=== PATIENT | male | born 1945 | race Caucasian/White ===

== ENCOUNTER 2023-02-06 13:46 | Inpatient (IN) | payer OTHER ==
[~2023-02-06] VITALS: Ht 182.9 cm; Wt 73.0 kg
[2023-02-06] MEDS ORDERED: POLY17PO4 PO (14:27)
[2023-02-06] MEDS ORDERED: CEFT2VIA64 IV (14:27)
[2023-02-06] MEDS ORDERED: GABA-532 PO (14:27)
[2023-02-06] MEDS ORDERED: PANT40TA2 PO (14:27)
[2023-02-06] MEDS ORDERED: BISA10SU11 RC (14:27)
[2023-02-06] MEDS ORDERED: NA P133E RC (14:27)
[2023-02-06] MEDS ORDERED: WARF-58 PO (14:27)
[2023-02-06] MEDS ORDERED: SENN-261 PO (14:27)
[2023-02-06] MEDS ORDERED: BUDE0.5A4 INH (14:27)
[2023-02-06] MEDS ORDERED: DOCU-141 PO (14:27)
[2023-02-06] MEDS ORDERED: FERR325T23 PO (14:27)
[2023-02-06] MEDS ORDERED: ISOS10TA2 PO (14:27)
[2023-02-06] MEDS ORDERED: RIFA300C4 PO (14:27)
[2023-02-06] MEDS ORDERED: CARV3.122 PO (14:27)
[2023-02-06] MEDS ORDERED: CARB1TAB21 PO (14:27)
[2023-02-06] MEDS ORDERED: ACET-2605 PO (14:27)
[2023-02-06] MEDS ORDERED: AMIO200T5 PO (14:27)
[2023-02-06] MEDS ORDERED: AMPI2VIA14 IV (14:27)
[2023-02-06] MEDS ORDERED: BUME1TAB8 PO (14:27)
[2023-02-06] MEDS ORDERED: MAGN400O6 PO (14:27)
[2023-02-06] MEDS ORDERED: ACET-868 PO (14:27)
[2023-02-06] MEDS ORDERED: HEPA50007 SQ (14:27)
[2023-02-06] MEDS ORDERED: LACT10SO3 PO (14:27)
[2023-02-06] MEDS ORDERED: IPRA3AMP23 IH (14:27)
[2023-02-06] MEDS ORDERED: TRAM50TA2 PO ×2 (14:27)
[2023-02-06] MEDS ORDERED: FOLI0.8T2 PO (14:27)
--- NOTE | 2023-02-06 14:40 | NUR ---
PT PUT ON BED ON HIS SIDE, CC ABDOMINAL PAIN FEW HOURS PTC. KNOWN DIALYSIS PT 3XWEEKLY, LAST KNOWN DIALYSIS WAS TUESDAY.. AFTE EATING LUNCH PT SATRTED TO HAVE ADBDOMINAL PAIN 05/26. NON RADIATING WITH VOMOITINGM NO NAUSEA, YELLOWISH IN COLOR. PUT ON MONITOR AND PULSE . HAS BEDSORE WELL DRESSED FOR A YEAR NOW AND CLAIMS IT IS HEALING WELL.NURSING CARE PROVIDED. MEDICAL SALES AT BEDSIDE. MADE AWARE.
--- NOTE | 2023-02-06 14:43 | NUR ---
DIALYSIS STENT LOCATED SUBCLAVIAN RT, AND HAS A PICK LINE LT AC. PATIENT NOT IN DISTRESS
[2023-02-06] MEDS ORDERED: ONDANSETRON HCL/PF - ER 4 MG/2 ML VIAL IV ONE (15:30)
[2023-02-06] MEDS ORDERED: TRAMADOL HCL 50 MG TABLET PO ONE (15:30)
[2023-02-06] MEDS ORDERED: ONDANSETRON HCL/PF 4 MG/2 ML VIAL ONE (15:33)
[2023-02-06] MEDS ORDERED: TRAMADOL HCL 50 MG TABLET ONE (15:34)
[2023-02-06 15:39] LABS: EOSINOPHILS % (AUTO) 0.8 % (0.0-6.0); HEMATOCRIT 40 % (39-51); HEMOGLOBIN 12.3 g/dL (13.5-17.5); LYMPHOCYTES # (AUTO) 0.4 K/uL (0.8-4.8); LYMPHOCYTES % (AUTO) 9.5 % (20.0-44.0); MEAN CORPUSCULAR HGB CONC 31 g/dl (31.0-36.0); MEAN CORPUSCULAR VOLUME 102 fL (80-96); MONOCYTES # (AUTO) 0.4 K/uL (0.1-1.30); MONOCYTES % (AUTO) 7.9 % (2.0-12.0); NEUTROPHILS # (AUTO) 3.8 K/uL (1.8-8.9); NEUTROPHILS % (AUTO) 80.8 % (43.0-81.0); PLATELET COUNT (AUTO) 162 K/uL (150-450); RED BLOOD CELL COUNT(AUTO) 3.93 MIL/uL (4.5-6.0); WHITE BLOOD COUNT (AUTO) 4.7 K/uL (4.3-11.0)
[2023-02-06 16:28] LABS: ALANINE AMINOTRANSFERASE 8 U/L (12-78); ALBUMIN 2.7 g/dL (3.4-5.0); ALKALINE PHOSPHATASE 86 U/L (46-116); ASPARTATE AMINOTRANSFERASE 18 U/L (15-37); BILIRUBIN,DIRECT 0.4 mg/dL (0.0-0.2); BILIRUBIN,TOTAL 0.7 mg/dL (0.2-1.0); CALCIUM, SERUM 9.9 mg/dL (8.5-10.1); CARBON DIOXIDE 23 mmol/L (21-32); CHLORIDE 99 mmol/L (98-107); CREATININE 5.2 mg/dL (0.6-1.3); GLUCOSE 114 mg/dL (74-106); POTASSIUM 5.1 mmol/L (3.5-5.1); SODIUM SERUM 138 mmol/L (136-145); TOTAL PROTEIN, SERUM 6.5 g/dL (6.4-8.2); UREA NITROGEN, BLOOD 50 mg/dL (7-18)
--- NOTE | 2023-02-06 16:42 | NUR ---
MOVE SHEET SUBMITTED.
[2023-02-06] MEDS ORDERED: ASPIRIN 325 MG TABLET PO ONE (17:30)
--- NOTE | 2023-02-06 17:57 | NUR ---
DR COOK PAGED, TALKING TO DR PAYNE.
--- NOTE | 2023-02-06 18:06 | NUR ---
ADMISSIONS INFORMED PT HAS NOT RECEIVED AUTH FROM INSURANCE YET.
--- NOTE | 2023-02-06 18:57 | NUR ---
COVID SWAB DONE SENT TO LAB
--- NOTE | 2023-02-06 20:06 | NUR ---
REPORT GIVEN TO ANSELMO DONATO RN BED 209 FOR CONTINUATION OF CARE
--- NOTE | 2023-02-06 20:09 | NUR ---
CRITICAL RESULT FOR TROP 127
--- NOTE | 2023-02-06 20:19 | NUR ---
EDECHO DONE WITH EF OF 20-25
[2023-02-06] MEDS ORDERED: Medication Not On Formulary EA (Ceftriaxone Sodium (Ceftriaxone) 2 GM) IV SCH (20:30)
[2023-02-06] MEDS ORDERED: Medication Not On Formulary EA (Ipratropium/Albuterol Sulfate (Duoneb 2.5-0.5 Mg/3 Ml So IH PRN (20:30)
[2023-02-06 21:00] VITALS: BP 112/62
[2023-02-06] MEDS ORDERED: HEPARIN SODIUM, PORCINE 5000 UNITS/1 ML VIAL SQ SCH (21:00)
[2023-02-06] MEDS ORDERED: BISACODYL SUPP (10 MG) 10 MG/SUPP.RECT SUPP.RECT RC ONE (21:00)
[2023-02-06] MEDS ORDERED: AMPICILLIN SODIUM 2 GM VIAL IV SCH (21:00)
[2023-02-06] MEDS ORDERED: ONDANSETRON HCL/PF 4 MG/2 ML VIAL IV PRN (21:00)
[2023-02-06] MEDS ORDERED: HYDROMORPHONE MDV 0.5 MG in IV D5W 50 ML IV PRN (21:00)
--- NOTE | 2023-02-06 21:15 | NUR ---
RN NOTE SEEN AND EXAMINED BY DR. COOK. PATIENT IS FOR MANUAL DISIMPACTION UNDER SEDATION. CONSENT SECURED FOR THE PROCEDURE. PATIENT SIGNED THE CONSENT FOR THE PROCEDURE AND ANESTHESIA.
[2023-02-06] MEDS ORDERED: ALBUTEROL FS 2.5 MG/0.5 ML VIAL.NEB NEB PRN (21:30)
[2023-02-06] MEDS ORDERED: IPRATROPIUM NEB FS 0.5 MG/2.5 ML AMPUL.NEB IH PRN (21:30)
--- NOTE | 2023-02-06 21:30 | NUR ---
HIGHWAY MAINTENANCE WORKEROIL RIG ROUGHNECK NOTE ADMITTED THIS PATIENT FROM ER VIA [facility] @ 2029. PATIENT IS AWAKE, ALERT AND ORIENTED X 3. ON O2 INHALATION @ 3 LPM VIA NASAL CANNULA. ON EXTERNAL CARDIAC MONITORING WHICH READS SINUS TACHYCARDIA HR-103 BPM. INITIAL VS TAKEN FOLLOWS: T 98.2, TN 98, RR 20, 02 SAT 94%, BP 112/62. BREATHING EQUAL AND UNLABORED. BODY AND SKIN ASSESSMENT DONE. PICTURES TAKEN AND PLACED TO CHART. WITH LEFT UPPER ARM PICC LINE; INTACT, PATENT AND SALINE LOCKED. WITH RIGHT UPPER CHEST WALL HD CATH. DRESSING C/D/I. ABLE TO MAKE NEEDS KNOWN. ORIENTED TO STAFF, ROOM AND UNIT. SAFETY MEASURES IMPLEMENTED: CALL LIGHT AND TABLE WITHIN REACH, SIDE RAILS UP X 3, BED IN LOWEST LOCKED POSITION. WILL CONTINUE TO MONITOR PATIENT ACCORDINGLY.
[2023-02-06] MEDS ORDERED: ANESTHESIA TRAY IN PYXIS 1 EA TRAY MC ONE (21:34)
[2023-02-06] MEDS ORDERED: MIDAZOLAM HCL 2 MG/2ML VIAL ONE (21:35)
[2023-02-06] MEDS ORDERED: FENTANYL PF 100MCG/2ML AMPUL ONE (21:35)
--- NOTE | 2023-02-06 21:45 | NUR ---
RN NOTE HEPARIN 1 ML HELD ORDERED FOR POSSIBLE SURGERY.
--- NOTE | 2023-02-06 21:50 | NUR ---
RN NOTE PATIENT PICKED UP BY OR NURSES.
[2023-02-06] MEDS ORDERED: LIDOCAINE 2% JEL 5 ML TUBE ONE (21:54)
[2023-02-06 21:58] LABS: BAND % (MANUAL) 8 % (0.0-5.0); LYMPHOCYTES % (MANUAL) 10 % (16-48); MONOCYTES % (MANUAL) 4 % (0-11.0); MYELOCYTES % 1 % (0-0); NEUTROPHILS % (MANUAL) 77 (42-76)
--- NOTE | 2023-02-06 23:25 | NUR ---
RN NOTE PATIENT CAME BACK FROM ER. PATIENT IS AWAKE, ALERT AND ORIENTED X 3. STILL ON 3 LPM VIA NASAL CANNULA. VS FOLLOWS: T 98.4, OR 104, RR 20, O2 SAT 95%. WITH POST OP ORDER FROM DR COOK; WILL CARRY OUT.
[2023-02-06] MEDS: IV D5/ 0.9% NACL 1,000 ML IV PRN (23:52)
[2023-02-07] VITALS: BP 111/73
[2023-02-07] MEDS ORDERED: CEFTRIAXONE 1 G VIAL ONE ×2 (00:35→00:37)
[2023-02-07] MEDS: CEFTRIAXONE 2 G in IV NS 0.9% 100 ML IV SCH ×2 (00:41→22:47)
[2023-02-07] MEDS ORDERED: AMPICILLIN 1 GM VIAL ONE (00:54)
[2023-02-07] MEDS: AMPICILLIN SODIUM 2 GM in IV NS 0.9% 100 ML IV SCH ×3 (01:58→21:19)
[2023-02-07 04:00] VITALS: BP 116/67
--- NOTE | 2023-02-07 07:00 | NUR ---
SUMMER NANNY CLOSING NOTE PATIENT IN BED; AWAKE, A/O X 3. STILL ON O2 INHALATION @ 3 LPM VIA NASAL CANNULA. ON EXTERNAL CARDIAC MONITORING WHICH READS SINUS RHYTHM HR-91 BPM. NO S/S OF PAIN OR DISCOMFORT NOTED AT THIS TIME. WITH LEFT UPPER ARM PICC LINE; INTACT AND PATENT RUNNING WITH D5NS 1L REGULATED @ 50 ML/HR; FLUSHES WELL. WITH RIGHT UPPER CHEST WALL HD CATH. DRESSING C/D/I. SAFETY MEASURES MAINTAINED: CALL LIGHT AND TABLE WITHIN REACH, SIDE RAILS UP X 3, BED IN LOWEST LOCKED POSITION. ENDORSED TO MORNING SHIFT FOR CONTINUITY OF CARE.
--- NOTE | 2023-02-07 07:35 | NUR ---
DISPUTE RESOLUTION SPECIALIST OPENING NOTES RECEIVED PATIENT IN BED; AWAKE, A/O X 3, ABLE TO MAKE NEEDS KNOWN. ON O2 INHALATION AT 2L VIA NC, TOLERATING WELL AND SATURATING AT 98%. NO SOB NOTED, BREATHING EVEN AND UNLABORED. NO SIGNS OF ACUTE DISTRESS NOTED. DENIES ANY PAIN AT THIS TIME. ON TELE MONITORING READING SR, HR:90. NOTED WITH IV ACCESS AT LEFT UPPER ARM PICC LINE-RUNNING WITH D5NS 1L REGULATED @ 50ML/HR; WITH RIGHT UPPER CHEST WALL HD CATHETER, DRESSING CLEAN, DRY AND INTACT. SAFETY MEASURES IN PLACE: BED IN LOW AND LOCKED POSITION; SIDE RAILS UP X2; CALL LIGHT WITHIN EASY REACH; WILL CONTINUE TO MONITOR THE PATIENT.
[2023-02-07 08:00] VITALS: BP 109/74
--- NOTE | 2023-02-07 08:00 | NUR ---
SPECIAL NEEDS LIBRARIAN SEEN BY DR DASHA RAMOS.
[2023-02-07] MEDS ORDERED: BUDESONIDE RESPULE INH 0.5 MG/2 ML AMPUL.NEB IH SCH (09:00)
[2023-02-07] MEDS: ENSURE CLEAR 237 ML LIQUID (MIX BERRY) PO SCH ×3 (09:00→17:14)
[2023-02-07] MEDS ORDERED: LINACLOTIDE PO SCH (09:00)
[2023-02-07 09:26] LABS: ALANINE AMINOTRANSFERASE < 6 U/L (12-78); ALBUMIN 2.4 g/dL (3.4-5.0); ALKALINE PHOSPHATASE 77 U/L (46-116); ASPARTATE AMINOTRANSFERASE 14 U/L (15-37); BILIRUBIN,TOTAL 0.6 mg/dL (0.2-1.0); CARBON DIOXIDE 24 mmol/L (21-32); CHLORIDE 99 mmol/L (98-107); CREATININE 5.6 mg/dL (0.6-1.3); GLUCOSE 135 mg/dL (74-106); MAGNESIUM 3.1 mg/dL (1.8-2.4); PHOSPHORUS 6.7 mg/dL (2.5-4.9); POTASSIUM 5.8 mmol/L (3.5-5.1); SODIUM SERUM 138 mmol/L (136-145); TOTAL PROTEIN, SERUM 6.3 g/dL (6.4-8.2); UREA NITROGEN, BLOOD 61 mg/dL (7-18)
--- NOTE | 2023-02-07 09:26 | NUR ---
WOUND CARE CONSULT: PT PRESENTS WITH DUSKY COLOR TO FEET AND TOES, SACRAL STAGE 3 PRESSURE ULCER, DRY SKIN TO ARMS WITH SKIN TEARS AND AREAS OF DISCOLORATION AND SCAR TO BACK, ALL PRESENT ON ADMISSION. DR STODDARD CALLED FOR SURGICAL CONSULT. DISCUSSED SKIN PROTECTION WITH NURSING STAFF. MD IN AGREEMENT WITH PLAN OF CARE.
[2023-02-07] MEDS ORDERED: Z GUARD REMEDY 4 OZ OINT TP PRN (09:30)
--- NOTE | 2023-02-07 09:56 | NUR ---
PERSONAL ATTENDANT NOTE RECIEVED A CALL FROM [employer], PROVIDER FOR PACEMAKER/ICD. SHE APPARENTLY GOT A PAGE, I TOLD HER THAT MD WANTED TO HAVE PATIENT'S ICD CHECKED. SHE JUST ASKED FOR THE PATIENT'S DATE OF AND SAID SHE WILL SEND SOMEBODY IF THEY ARE THE PROVIDER FOR THE PATIENT.
--- NOTE | 2023-02-07 10:01 | NUR ---
GERONTOLOGY AIDE NOTE ANTICIPATING PATIENT POSSIBLY GOING ON HD PATIENT IS A REGULAR HD PATIENT. SECURED CONSENT FOR POSSIBLE HD, PATIENT UNABLE TO SIGN FOR HIMSELF BECAUSE OF HAND TREMORS BUT GAVE VERBAL CONSENT. WITNESSED BY ANOTHER NURSE. CONSENT ATTACHED TO CHART.
[2023-02-07] MEDS: AMIODARONE HCL 200 MG TABLET PO SCH ×2 (10:14→16:57)
[2023-02-07] MEDS: CARBIDOPA/LEVODOPA 25/100 MG 1 UDTAB PO SCH ×3 (10:14→16:46)
[2023-02-07] MEDS: LACTULOSE 10 G/15 ML UDC (PYXIS) PO SCH ×2 (10:14→16:44)
[2023-02-07] MEDS: CARVEDILOL 3.125 MG TABLET PO SCH ×2 (10:15→16:58)
[2023-02-07] MEDS ORDERED: HYDROMORPHONE 1 MG/1 ML DISP.SYRIN IV PRN (11:00)
[2023-02-07 12:00] VITALS: BP 118/71
--- NOTE | 2023-02-07 12:45 | NUR ---
INSTRUMENT TESTER NOTE PATIENT LATEST BS 55 MG/DL, NO SIGNS AND SYMPTOMS OF HYPOGLYCEMIA. PATIENT IS CURRENTLY EATING AND REFUSED TO BE GIVEN D50 AT THIS TIME. HE SAID TO JUST RECHECK IT LATER. IN STABLE CONDITION.
[2023-02-07] MEDS: THERAHONEY GEL 1.5 OZ TUBE TP SCH ×2 (13:01→13:09)
[2023-02-07] MEDS: Z GUARD REMEDY 4 OZ OINT TP SCH (13:02)
[2023-02-07] MEDS: MINERAL OIL/PETROLATUM,WHITE 120 GM JAR TP SCH ×2 (13:07→13:29)
[2023-02-07] MEDS: ISOSORBIDE DINITRATE (20MG) 20 MG TABLET PO SCH ×2 (13:16→16:45)
[2023-02-07] MEDS: POLYETHYLENE GLYCOL 3350 17 GM POWD.PACK PO SCH (15:08)
[2023-02-07 16:00] VITALS: BP 108/60
--- NOTE | 2023-02-07 17:00 | NUR ---
POULTRY PINNER PATIENT STARTED HEMODIALYSIS.
[2023-02-07] MEDS ORDERED: ALBUMIN 25% 25 GM in PREMIX 1 EA IV PRN (17:30)
[2023-02-07] MEDS: PROSOURCE / PROSTAT (PYXIS) 30 ML UDC GT SCH (17:35)
[2023-02-07] MEDS ORDERED: WARFARIN SODIUM 5 MG TABLET PO SCH (18:00)
--- NOTE | 2023-02-07 19:00 | NUR ---
CARDIAC EXERCISE PHYSIOLOGIST PATIENT'S HEMODIALYSIS ENDED AT 1900H WITH OUTPUT OF 1 LITER. PATIENT TOLERATED WELL.
--- NOTE | 2023-02-07 19:21 | NUR ---
MANAGER APPLICATION CLOSING NOTES PATIENT IN BED; AWAKE, A/O X 3, ABLE TO MAKE NEEDS KNOWN. ON O2 INHALATION AT 2L VIA NC, TOLERATING WELL AND SATURATING AT 98%. NO SOB NOTED, BREATHING EVEN AND UNLABORED. NO SIGNS OF ACUTE DISTRESS NOTED. DENIES ANY PAIN AT THIS TIME. ON TELE MONITORING READING MANAGER EXCHANGE, HR:87. NOTED WITH IV ACCESS AT LEFT UPPER ARM PICC LINE-RUNNING WITH D5NS 1L REGULATED @ 50ML/HR; WITH RIGHT UPPER CHEST WALL HD CATHETER, DRESSING CLEAN, DRY AND INTACT. ALL DUE MEDS GIVEN. ALL NEEDS ATTENDED. SAFETY MEASURES MAINTAINED; BED IN LOW AND LOCKED POSITION; SIDE RAILS UP X2; CALL LIGHT WITHIN EASY REACH; WILL ENDORSE TO VALIDATION LEADER NURSE FOR CONTINUITY OF CARE.
[2023-02-07] MEDS: BUDESONIDE RESPULE INH 0.5 MG/2 ML AMPUL.NEB IH SCH (19:51)
--- NOTE | 2023-02-07 20:01 | NUR ---
RN Opening Notes Received pt in bed, awake. AOx4. On NC 3LPM and tolerating well. No SOB noted. No s/sx of respiratory distress noted. Tele monitor detects V-pacing with rate of 89. IV access in SEBAS PICC line running D51/2NS @ 50 mL/hr. Safety precautions in place: bed in lowest, locked position, siderails upX2, and brakes on. Table and call light within reach. All needs met at this time.
[2023-02-07] MEDS ORDERED: NA PHOS,M-B/NA PHOS,DI-BA 1 EA ENEMA RC PRN (20:30)
--- NOTE | 2023-02-07 20:37 | NUR ---
RN Notes Administered dilaudid for pain per MD order. VS WNL.
[2023-02-07 21:29] VITALS: BP 111/50
[2023-02-08] VITALS (27 sets, daily range): BP systolic 78–161; BP diastolic 45–110
[2023-02-08] MEDS: IV D5/ 0.9% NACL 1,000 ML IV PRN (01:10)
[2023-02-08 06:31] LABS: BASOPHILS % (AUTO) 0.1 % (0.0-2.0); HEMATOCRIT 37 % (39-51); HEMOGLOBIN 11.4 g/dL (13.5-17.5); LYMPHOCYTES # (AUTO) 0.2 K/uL (0.8-4.8); LYMPHOCYTES % (AUTO) 2.7 % (20.0-44.0); MEAN CORPUSCULAR HGB CONC 31 g/dl (31.0-36.0); MEAN CORPUSCULAR VOLUME 101 fL (80-96); MONOCYTES # (AUTO) 0.2 K/uL (0.1-1.30); MONOCYTES % (AUTO) 2.9 % (2.0-12.0); NEUTROPHILS # (AUTO) 7.8 K/uL (1.8-8.9); NEUTROPHILS % (AUTO) 94.3 % (43.0-81.0); PLATELET COUNT (AUTO) 134 K/uL (150-450); WHITE BLOOD COUNT (AUTO) 8.3 K/uL (4.3-11.0)
--- NOTE | 2023-02-08 06:38 | NUR ---
RN Closing Notes Pt in bed, asleep, awakens to verbal stimuli. AOx4. On NC 3LPM and tolerating well. No SOB noted. No s/sx of respiratory distress noted. Tele monitor detects V-pacing with rate of 89. IV access in SEBAS PICC line running D5NS @ 50 mL/hr. All orders carried out. All needs met. Pt kept clean and dry. Safety precautions in place: bed in lowest, locked position, siderails upX2, and brakes on. Table and call light within reach. Will endorse to oncoming shift for AMRITA.
--- NOTE | 2023-02-08 07:20 | NUR ---
PERSONAL CARE WORKER OPENING NOTES RECEIVED PATIENT IN BED; ASLEEP BUT EASY TO AROUSE, A/O X 4, ABLE TO MAKE NEEDS KNOWN. ON O2 INHALATION AT 3L VIA NC, TOLERATING WELL AND SATURATING AT 99%. NO SOB NOTED, BREATHING EVEN AND UNLABORED. NO SIGNS OF ACUTE DISTRESS NOTED. ON TELE MONITORING READING SR, HR:97. NOTED WITH IV ACCESS AT LEFT UPPER ARM PICC LINE-RUNNING WITH D5NS 1L REGULATED @ 50ML/HR; WITH RIGHT UPPER CHEST WALL HD CATHETER, DRESSING CLEAN, DRY AND INTACT. SAFETY MEASURES IN PLACE: BED IN LOW AND LOCKED POSITION; SIDE RAILS UP X2; CALL LIGHT WITHIN EASY REACH; WILL CONTINUE TO MONITOR THE PATIENT.
[2023-02-08 07:31] LABS: CALCIUM, SERUM 9.4 mg/dL (8.5-10.1); CARBON DIOXIDE 25 mmol/L (21-32); CHLORIDE 103 mmol/L (98-107); CREATININE 4.1 mg/dL (0.6-1.3); GLUCOSE 117 mg/dL (74-106); MAGNESIUM 2.6 mg/dL (1.8-2.4); POTASSIUM 4.4 mmol/L (3.5-5.1); SODIUM SERUM 140 mmol/L (136-145); UREA NITROGEN, BLOOD 42 mg/dL (7-18)
[2023-02-08] MEDS: BUDESONIDE RESPULE INH 0.5 MG/2 ML AMPUL.NEB IH SCH ×2 (08:11→20:11)
[2023-02-08] MEDS: CARVEDILOL 3.125 MG TABLET PO SCH ×3 (09:00→17:00)
[2023-02-08] MEDS: ISOSORBIDE DINITRATE (20MG) 20 MG TABLET PO SCH ×3 (09:00→17:00)
--- NOTE | 2023-02-08 09:15 | NUR ---
GREENS PLANTER NOTE PATIENT STARTED ON HD AROUND 0900H SOON THE HD STARTED, PATIENT SHOWED VTACH WITH PREMATURE COMPLEX. PATIENT DOES NOT SHOW ANY SIGNS OF DISTRESS AND ALSO HAVE AN ICD. ORDERED STAT EKG AND NOTIFIED RT. WHEN ASKED, PATIENT STATED ' I AM JUST FINE'. WHEN ASKED IF HE IS FEELING ANYTHING DIFFERENT, HE SAID 'NO'. COMFORT MEASURES PROVIDED.
--- NOTE | 2023-02-08 09:50 | NUR ---
ACETALDEHYDE CONVERTER OPERATOR NOTE PATIENT EKG SENT TO DR. LYLES. PATIENT SEEN BY DR. RAMOS. HD DISCONTINUED. NO SIGNS OF DISTRESS. WITH ORDER TO GIVE 500ML NS BOLUS. STARTED INFUSION. WILL CONTINUE WITH PLAN OF CARE. IN STABLE CONDITION. WILL CONTINUE WITH PLAN OF CARE.
--- NOTE | 2023-02-08 10:13 | NUR ---
TITLE CLOSER NOTE UPDATED MD OF LATEST INR 2.68, WITH ORDER TO STILL HOLD COUMADIN.
[2023-02-08] MEDS: LACTULOSE 10 G/15 ML UDC (PYXIS) PO SCH ×2 (10:14→17:07)
[2023-02-08] MEDS: PROSOURCE / PROSTAT (PYXIS) 30 ML UDC GT SCH ×2 (10:14→17:07)
[2023-02-08] MEDS: POLYETHYLENE GLYCOL 3350 17 GM POWD.PACK PO SCH (10:14)
[2023-02-08] MEDS: CARBIDOPA/LEVODOPA 25/100 MG 1 UDTAB PO SCH ×3 (10:16→17:07)
[2023-02-08] MEDS: AMIODARONE HCL 200 MG TABLET PO SCH ×3 (10:16→17:00)
[2023-02-08] MEDS: AMPICILLIN SODIUM 2 GM in IV NS 0.9% 100 ML IV SCH ×2 (10:20→20:28)
[2023-02-08] MEDS: ENSURE CLEAR 237 ML LIQUID (MIX BERRY) PO SCH ×3 (10:21→17:32)
[2023-02-08] MEDS: MINERAL OIL/PETROLATUM,WHITE 120 GM JAR TP SCH (10:37)
[2023-02-08] MEDS: THERAHONEY GEL 1.5 OZ TUBE TP SCH ×2 (10:37→10:38)
[2023-02-08] MEDS: Z GUARD REMEDY 4 OZ OINT TP SCH (10:38)
--- NOTE | 2023-02-08 14:20 | NUR ---
WASTE RECYCLER NOTE RECHECKED PATIENT, INFUSING BOLUS NOW AT 350ML, NOTED SOME COUGHING. PATIENT COMPLAINED OF SOME SHORTNESS OF BREATH. ON O2 AT 2LPM SATURATING AT 97%. WHILE AT BEDSIDE PATIENT GOT SHOCKED WITH ICD AROUND 1358, THEN AFTER A FEW MINUTES, HE SAID HE IS BETTER BUT FEELS TIRED. DR. LYLES AND DR. RAMOS NOTIFIED. WITH ORDERS RECEIVED FROM DR. LYLES FOR STAT LABS AND LIDOCAINE DRIP AND TRANSFER PATIENT TO ICU. COMFORT MEASURES PROVIDED. CHARGE NURSE NOTIFIED. DR. RAMOS NOTIFIED. AWAITING AVAILABLE ROOM. Addendum: 02/08/23 at 1559 by ALEXEI SMITH RN PATIENT STARTED WITH VTACH WITH COMPLEX AT 140'S THEN GOT SHOCKED AND CONVERTED TO AFIB 80-90'S THEN BACK TO VTACH AT 140'S
--- NOTE | 2023-02-08 14:50 | NUR ---
GLOVE PARTS CUTTER NOTE WITH AVAILABLE BED ON ICU 252. PATIENT TRANSFERRED AND TRANSPORTED VIA BED ACCOMPANIED BY 2 NURSES. PATIENT ENDORSED TO ICU NURSES, COMFORT MEASURES PROVIDED. PATIENT STILL TO START ON LIDOCAINE DRIP AND BLOOD DRAW. NOTIFIED LAB REGARDING TRANSFER. ENDORSED PATIENT ACCORDINGLY.
[2023-02-08] MEDS ORDERED: IV LIDOCAINE HCL/D5W/PF/500ML 2,000 MG in PREMIX 1 EA IV PRN (15:00)
--- NOTE | 2023-02-08 15:00 | NUR ---
PACKAGING ENGINEER NOTE PATIENT TRANSFERRED FROM MED-SURG TO ICU MONITORING AT ROOM 252,ALERT ORIENTED X4 VERBALLY RESPONSIVE ON 2L OXYGEN VIA NASAL CANNULA,O2:94% HR 143 TACHYCARDIA,DASH CATH IN PLACE,URINE BLOODY,IV ACCESS ON LEFT UPPER ARM PICC LINE AND RIGHT CHEST WALL PERM-CATH FOR HD,SAFETY MEASURE IMPLEMENT BED IN LOW POSITON AND LOCKED,HEAD OF THE BED ELEVATED,CALL LIGHT WITHIN REACH CONTINUE TO MONITOR.
[2023-02-08 16:06] LABS: BAND % (MANUAL) 2 % (0.0-5.0); LYMPHOCYTES % (MANUAL) 2 % (16-48); NEUTROPHILS % (MANUAL) 96 (42-76)
--- NOTE | 2023-02-08 17:00 | NUR ---
RN NOTE HELD BP MEDS AT THIS TIME,DUE TO BP>100,CONTINUE TO MONITOR.
[2023-02-08] MEDS ORDERED: NOREPINEPHRINE 8 MG in IV NS 0.9% 242 ML IV PRN (18:00)
--- NOTE | 2023-02-08 18:58 | NUR ---
RN NOTE PATIENT REMAINS ALERT ORIENTED X4 VERBALLY RESPONSIVE ON 2L OXYGEN VIA NASAL CANNULA O2:97% ON LIDOCINE DRIP 1MG/15ML/HR,TACHYCARDIA HR 138,DASH CATH IN PLACE,KEPT HEAD OF THE BED ELEVATED,KEPT CLEAN AND DRY ALL THE TIME,ALL MEDS GIVEN EXCEPT BP MEDS,WILL ENDORSE NEXT COMING SHIFT FOR CONTINUATION OF CARE.
--- NOTE | 2023-02-08 19:46 | NUR ---
VIBRATOR EQUIPMENT TESTER OPENING NOTES: RECEIVED IN BED, AWAKE, ALERT/ ORIENTED X 3-4 AND VERBALLY RESPONSIVE. ON O2 AT 2L/MIN VIA NASAL CANNULA AND PT TOLERATED WELL. O2 SAT 96%. CARDIAC MONITORING SHOWS HR-139. IV ACCESS ON LEFT UPPER ARM PICC LINE. RUNNING LIDOCAINE DRIP 1MG/MIN. RIGHT CHEST WALL PERM-CATH FOR HD, COVERED WITH DRY DRESSING. DASH CATHETER IN PLACE. DRAINING SMAL AMOUNT OF URINE. ALL SAFETY MEASURE IN PLACE. BED IN LOWEST POSITON AND LOCKED,HEAD OF THE BED ELEVATED,SIDE RAILS UP X3, PLACE CALL LIGHT WITHIN REACH. WILL CONTINUE TO MONITOR.
[2023-02-08] MEDS: PHENYLEPHRINE 50 MG in IV NS 0.9% 245 ML IV PRN (21:33)
--- NOTE | 2023-02-08 21:38 | NUR ---
RN NOTES: PT'S BP DECREASING. BP- 86/60, PULSE- 139, RES-15. STARTED JULIA AT 0.5 MCG/KG/MIN. WILL CONTINUE TO MONITOR
[2023-02-08] MEDS: CEFTRIAXONE 2 G in IV NS 0.9% 100 ML IV SCH (22:09)
--- NOTE | 2023-02-08 23:54 | NUR ---
RN NOTES: PT'S BLOOD PRESSURE 84/74. PULSE 134. INCREASE JULIA TO 0.6 MCG/KG/MIN. WILL CONTINUE TO MONITOR
[2023-02-09] VITALS (89 sets, daily range): BP systolic 45–125; BP diastolic 13–87
--- NOTE | 2023-02-09 02:38 | NUR ---
RN NOTES: PT HAS EPISODE OF VOMITING. ZOFRAN GIVEN AND PT TOLERATED WELL. WILL CONTINUE TO MONITOR
[2023-02-09 03:59] LABS: BASOPHILS % (AUTO) 0.2 % (0.0-2.0); HEMATOCRIT 38 % (39-51); HEMOGLOBIN 11.6 g/dL (13.5-17.5); LYMPHOCYTES # (AUTO) 0.3 K/uL (0.8-4.8); LYMPHOCYTES % (AUTO) 2.9 % (20.0-44.0); MEAN CORPUSCULAR HGB CONC 31 g/dl (31.0-36.0); MEAN CORPUSCULAR VOLUME 102 fL (80-96); MONOCYTES # (AUTO) 0.5 K/uL (0.1-1.30); MONOCYTES % (AUTO) 4.9 % (2.0-12.0); NEUTROPHILS # (AUTO) 9.5 K/uL (1.8-8.9); PLATELET COUNT (AUTO) 155 K/uL (150-450); RED BLOOD CELL COUNT(AUTO) 3.72 MIL/uL (4.5-6.0); WHITE BLOOD COUNT (AUTO) 10.3 K/uL (4.3-11.0)
[2023-02-09 04:14] LABS: CALCIUM, SERUM 9.9 mg/dL (8.5-10.1); CARBON DIOXIDE 21 mmol/L (21-32); CHLORIDE 102 mmol/L (98-107); CREATININE 4.5 mg/dL (0.6-1.3); GLUCOSE 117 mg/dL (74-106); MAGNESIUM 2.8 mg/dL (1.8-2.4); SODIUM SERUM 138 mmol/L (136-145); UREA NITROGEN, BLOOD 45 mg/dL (7-18)
--- NOTE | 2023-02-09 06:32 | NUR ---
MONKEY BREEDER CLOSING NOTES: PT IN BED, SLEEPING BUT EASILY AROUSABLE, ALERT/ ORIENTED X 3-4 AND VERBALLY RESPONSIVE. ON O2 AT 2L/MIN VIA NASAL CANNULA AND PT TOLERATED WELL. O2 SAT 97%. IV ACCESS ON LEFT UPPER ARM PICC LINE AND LT FOOT#22G INTACT AND PATENT. NO S/S OF INFILTRATIONS. RUNNING LIDOCAINE DRIP 1MG/MIN AND JULIA AT 0.6 MCG/KG/MIN. RIGHT CHEST WALL PERM-CATH FOR HD, COVERED WITH DRY DRESSING. AV SHUNT ON RT FOREARM IN PLACE. NO C/O PAIN OR DOSCOMFORT. NO NAUSEA/VOMITING AT THIS MOMENT. DASH CATHETER IN PLACE. DRAINING DARK COLOR URINE. ALL DUE MEDS GIVEN ORDERED. Q 30 MINULES MANUAL BP CHECK DONE. ALL SAFETY MEASURE IN PLACE. BED IN LOWEST POSITON AND LOCKED,HEAD OF THE BED ELEVATED,SIDE RAILS UP X3, PLACE CALL LIGHT WITHIN REACH. WILL ENDORSE TO MORNING SHIFT NURSE.
--- NOTE | 2023-02-09 07:20 | NUR ---
PSYCHIATRIC TECHNICIAN ASSISTANT OPENING NOTE PT IN BED, SLEEPING BUT EASILY AROUSABLE, ALERT/ ORIENTED X 3-4 AND VERBALLY RESPONSIVE. ON O2 AT 2L/MIN VIA NASAL CANNULA AND PT TOLERATED WELL. O2 SAT 97%. IV ACCESS ON LEFT UPPER ARM PICC LINE AND LT FOOT#22G INTACT, PATENT AND FLUSHING WELL. . RUNNING LIDOCAINE DRIP 1MG/MIN AND JULIA AT 0.6 MCG/KG/MIN. RIGHT CHEST WALL PERM-CATH FOR HD, COVERED WITH CLEAN AND DRY DRESSING. AV SHUNT ON RT FOREARM IN PLACE. NO C/O PAIN OR DOSCOMFORT AT THIS TIME.DASH CATHETER IN PLACE. DRAINING DARK COLOR URINE. ALL SAFETY MEASURE IN PLACE. BED IN LOWEST POSITON AND LOCKED,HEAD OF THE BED ELEVATED AT ALL TIMES,SIDE RAILS UP X3, PLACE CALL LIGHT WITHIN REACH.
[2023-02-09] MEDS: BUDESONIDE RESPULE INH 0.5 MG/2 ML AMPUL.NEB IH SCH ×2 (07:24→19:37)
[2023-02-09] MEDS ORDERED: LACTULOSE 10 G/15 ML UDC (PYXIS) PO PRN (08:30)
[2023-02-09] MEDS ORDERED: ALBUMIN 25% 12.5 GM/50 ML BOTTLE IV ONE (08:30)
[2023-02-09] MEDS: POLYETHYLENE GLYCOL 3350 17 GM POWD.PACK PO SCH (08:36)
[2023-02-09] MEDS: THERAHONEY GEL 1.5 OZ TUBE TP SCH (08:39)
[2023-02-09] MEDS: Z GUARD REMEDY 4 OZ OINT TP SCH (08:39)
[2023-02-09] MEDS: AMIODARONE HCL 200 MG TABLET PO SCH ×3 (09:00→16:56)
[2023-02-09] MEDS: PROSOURCE / PROSTAT (PYXIS) 30 ML UDC GT SCH ×2 (09:00→16:37)
[2023-02-09] MEDS: CARBIDOPA/LEVODOPA 25/100 MG 1 UDTAB PO SCH ×3 (09:00→16:55)
--- NOTE | 2023-02-09 09:01 | NUR ---
RN NOTE PT CURRENTLY GETTING DIALYSIS AT THIS TIME
--- NOTE | 2023-02-09 09:45 | NUR ---
rn note during dialysis, pt went into vtach 135. dialysis stopped. dialysis nurses only removed 177ml
--- NOTE | 2023-02-09 10:03 | NUR ---
RN NOTE notified that pt went to [facility] during dialysis. sent results of ekg to . notified manual bp recheck 86/52, guillermo at 0.8
[2023-02-09] MEDS: MINERAL OIL/PETROLATUM,WHITE 120 GM JAR TP SCH (10:17)
[2023-02-09] MEDS: ENSURE CLEAR 237 ML LIQUID (MIX BERRY) PO SCH ×3 (10:19→16:58)
[2023-02-09] MEDS: AMPICILLIN SODIUM 2 GM in IV NS 0.9% 100 ML IV SCH ×2 (10:57→22:22)
--- NOTE | 2023-02-09 11:36 | NUR ---
rn note amidoraone po was held due to vtach epsiode, pt lethargic at this time and high risk for aspiration
--- NOTE | 2023-02-09 12:04 | NUR ---
pt. place into high flow nasal cannula due to 84% spo2 in non rebreather mask. charge nurse and rn aware Addendum: 02/09/23 at 1206 by PENNY SCHAEFER RT Amended: Links added.
[2023-02-09] MEDS: PHENYLEPHRINE 50 MG in IV NS 0.9% 245 ML IV PRN ×2 (12:40→23:36)
--- NOTE | 2023-02-09 13:25 | NUR ---
rn note pt placed on hi flow 40L, fio2 100% by respiratory therapist. dr. cintron aware
--- NOTE | 2023-02-09 13:30 | NUR ---
rn note notified if okay to give amidarone with a bp 88/66, hr 131. said okay to give
--- NOTE | 2023-02-09 15:40 | NUR ---
rn note notified dr. cintron of pt black and tarry stool, hgb 11.6, hct 38, platelet 155 Addendum: 02/09/23 at 1623 by AMARJIT OLVERA RN ordered protonix 40 mg iv bid and stool occult sample
--- NOTE | 2023-02-09 16:33 | NUR ---
rn note lidocaine drip stopped at this time per
[2023-02-09] MEDS: PANTOPRAZOLE 40 MG VIAL IV SCH (16:37)
--- NOTE | 2023-02-09 16:47 | NUR ---
rn note vital signs datacope for [id number] not shown due to cleaning patient and wound care
--- NOTE | 2023-02-09 18:26 | NUR ---
RN NOTE ATTEMPTED TO CALL BACK PT'S AND DAUGHTER. DID NOT ANSWER AT THIS TIME
--- NOTE | 2023-02-09 19:13 | NUR ---
UNIT NURSE CLOSING NOTE PT IN BED. ALERT/ ORIENTED X 3-4 AND VERBALLY RESPONSIVE.PERIODS OF CONFUSION.PT ON TELE MONITOR SHOWING SINUS RHYTHM 95 AT THIS TI,E. ON HIGH FLOW 40L, FIO2 100% TOLERATING AT 100%. IV ACCESS ON LEFT UPPER ARM PICC LINE AND LT FOOT#22G INTACT, PATENT AND FLUSHING WELL.JULIA CURRENTLY RUNNING AT 0.6 MCG/KG/MIN. RIGHT CHEST WALL PERM-CATH FOR HD, CLEAN AND DRY DRESSING. RIGHT AV SHUNT. NO C/O PAIN OR DISCOMFORT AT THIS TIME.DASH CATHETER IN PLACE. DRAINING DARK COLOR URINE, CLEANED,TURNED AND REPOSITIONED. WOUND CARE DONE. ALL SAFETY MEASURE IN PLACE. BED IN LOWEST POSITON AND LOCKED,HEAD OF THE BED ELEVATED AT ALL TIMES,SIDE RAILS UP X3, PLACE CALL LIGHT WITHIN REACH. BED ALARM ON.ENDORSED TO CAP MAKER RN FOR CONTUITY OF CARE
--- NOTE | 2023-02-09 19:54 | NUR ---
DIRECTOR ORACLE RETAIL. INITIAL ASSESSMENT. RECEIVED THE PT REST IN BED. AWAKE. CONFUSED. PULLING OXYGEN, ROSS MITTENS INITIATED. OXYGEN HFNC 100%. 40L. HOB ELEVATED. QUALITY ASSURANCE TECHNICIAN SHOWING S TACH. FC PATENT CONCENTRATED URINE DRAINING. IV LT UPPER ARM PICC LINE JULIA 0.6 MCG/KG/MIN, ROSS UPPER EXTREMITY BRUISE. WILL CONTINUE TO MONITOR VITALS.
[2023-02-09] MEDS ORDERED: AMPICILLIN 1 GM VIAL ONE (22:04)
[2023-02-09] MEDS: CEFTRIAXONE 2 G in IV NS 0.9% 100 ML IV SCH (22:31)
[2023-02-10] VITALS (29 sets, daily range): BP systolic 0–130; BP diastolic 30–72
[2023-02-10 03:49] LABS: BASOPHILS % (AUTO) 0.1 % (0.0-2.0); HEMATOCRIT 40 % (39-51); HEMOGLOBIN 11.9 g/dL (13.5-17.5); LYMPHOCYTES # (AUTO) 0.6 K/uL (0.8-4.8); LYMPHOCYTES % (AUTO) 3.9 % (20.0-44.0); MEAN CORPUSCULAR HGB CONC 30 g/dl (31.0-36.0); MEAN CORPUSCULAR VOLUME 104 fL (80-96); MONOCYTES # (AUTO) 1.1 K/uL (0.1-1.30); MONOCYTES % (AUTO) 7.5 % (2.0-12.0); NEUTROPHILS # (AUTO) 13.5 K/uL (1.8-8.9); NEUTROPHILS % (AUTO) 88.5 % (43.0-81.0); PLATELET COUNT (AUTO) 160 K/uL (150-450); RED BLOOD CELL COUNT(AUTO) 3.87 MIL/uL (4.5-6.0); WHITE BLOOD COUNT (AUTO) 15.2 K/uL (4.3-11.0)
[2023-02-10 03:57] LABS: CALCIUM, SERUM 10.7 mg/dL (8.5-10.1); CARBON DIOXIDE 17 mmol/L (21-32); CHLORIDE 102 mmol/L (98-107); GLUCOSE 60 mg/dL (74-106); MAGNESIUM 3.1 mg/dL (1.8-2.4); POTASSIUM 5.4 mmol/L (3.5-5.1); SODIUM SERUM 139 mmol/L (136-145); UREA NITROGEN, BLOOD 53 mg/dL (7-18)
[2023-02-10] MEDS ORDERED: PHENYLEPHRINE 10 MG/ML VIAL ONE (04:49)
[2023-02-10] MEDS: PHENYLEPHRINE 50 MG in IV NS 0.9% 245 ML IV PRN (04:56)
--- NOTE | 2023-02-10 06:42 | NUR ---
INSTRUMENT REPAIR SPECIALIST. AM CARE GIVEN. REMAINING SAME OXYGEN TOLERATED WELL. SAT 98%. NO ACUTE DISTRESS NOTED. MARKETING ROTATION ASSOCIATE SHOWING A PACING. HOB ELEVATED, TURN AND REPOSITION Q2H. IV LT UPPER ARM PICC LINE JULIA 1.8MCG/KG/MIN. WILL CONTINUE TO MONITOR VITALS.
--- NOTE | 2023-02-10 06:45 | NUR ---
EMBEDDED SYSTEMS SOFTWARE DEVELOPER. DURING HD NO COMPLICATION NOTED.
--- NOTE | 2023-02-10 06:45 | NUR ---
STAGE TECHNICIAN. HD STARTED AT 0300.
[2023-02-10] MEDS: BUDESONIDE RESPULE INH 0.5 MG/2 ML AMPUL.NEB IH SCH (07:07)
--- NOTE | 2023-02-10 07:30 | NUR ---
ICU/RN PT IS ON HI-FLOW O2, ZGT4-60M-101%.SAT O2 LOW.NRM 15L MASK ADD. SAT O2-92%.BP LOW .MANUALLY CHECK.88/50.AFEBRILE.PT IS AWAKE.PT IS ON NEOSYNEPHRINE DRIP.HR-130 BPM.AFEBRILE.SACRAL WOUND COVERED WITH DRESSING MULTIPLY BRUISES AND SKIN TEARS NOTED ALL OVER THE BODY.LEFT UPPER ARM PICC LINE.F/C IN PLACE ,NO URINE OUTPUT.PT IS ANURIC.ON HD .HD WAS THIS MORNING 1.5 L OUT.AM CRE PROVIDED.WOUND DRESSING DONE.PT HAS BM.REDNESS ON ASIA AREA AND LOWER BACK NOTED. REPOSITION FOR COMFORT.LABS REVIEW. NOTIFIED.
[2023-02-10] MEDS: PANTOPRAZOLE 40 MG VIAL IV SCH (08:40)
[2023-02-10] MEDS: AMPICILLIN SODIUM 2 GM in IV NS 0.9% 100 ML IV SCH (08:41)
[2023-02-10] MEDS ORDERED: AMIODARONE 150 MG in IV D5W 100 ML IV ONE (09:00)
[2023-02-10] MEDS ORDERED: SODIUM POLYSTYRENE SULFONATE 15 G/60 ML BOTTLE RC ONE (09:00)
[2023-02-10] MEDS ORDERED: IV LIDOCAINE HCL/D5W/PF/500ML 2,000 MG in PREMIX 1 EA IV PRN (09:00)
[2023-02-10] MEDS: PROSOURCE / PROSTAT (PYXIS) 30 ML UDC GT SCH (09:00)
[2023-02-10] MEDS: ENSURE CLEAR 237 ML LIQUID (MIX BERRY) PO SCH (09:00)
[2023-02-10] MEDS ORDERED: AMIODARONE 450 MG in IV D5W 241 ML IV PRN (09:00)
[2023-02-10] MEDS ORDERED: ALBUMIN 25% 12.5 GM/50 ML BOTTLE IV ONE (09:00)
[2023-02-10] MEDS: THERAHONEY GEL 1.5 OZ TUBE TP SCH (09:00)
[2023-02-10] MEDS: Z GUARD REMEDY 4 OZ OINT TP SCH (09:00)
[2023-02-10] MEDS: MINERAL OIL/PETROLATUM,WHITE 120 GM JAR TP SCH (09:00)
[2023-02-10] MEDS: POLYETHYLENE GLYCOL 3350 17 GM POWD.PACK PO SCH (09:00)
[2023-02-10] MEDS: CARBIDOPA/LEVODOPA 25/100 MG 1 UDTAB PO SCH (09:00)
--- NOTE | 2023-02-10 09:54 | NUR ---
ICU/RN ABG DONE.PT PLACED ON 60 % FIO2 AND 30 L FLOW. AMIODARONE DRIP STARTED.PO MEDS HOLD .UNABLE TO SWALLOW. NEW LEFT ARM ML INSERTED AND OLD PICC LINE REMOVED.
--- NOTE | 2023-02-10 10:25 | NUR ---
ICU/RN ASYSTOLE ON MONITOR.NO PULSES.NO RESPIRATIONS.NO CHEST MOVEMENTS.PUPILS ARE FIX AND DILATED.NO RESPIRATIONS. DR RAMOS NOTIFIED.DR LYLES NOTIFIED. PT WAS DNR/DNI.
--- NOTE | 2023-02-10 11:00 | NUR ---
ICU/RN [facility] NOTIFIED.CASE # [id number],RENEE. FAMILY, DAUGHTER POP NOTIFIED.([phone]).WILL PROVIDE MORTUARY INFORMATION LATTER. POST MORTEM CARE DONE.
--- NOTE | 2023-02-10 11:57 | NUR ---
ICU/RN BODY TRANSFERED TO [facility].FAMILY WILL PROVIDE MORTUARY INFO LATER.
[2023-02-10 13:28] LABS: OCCULT BLOOD STOOL NEGATIVE (NEGATIVE)
== END 2023-02-10 11:48 | DRG 356 ==
LOC: ER 13:50 → TELE 19:44 → ICU 02-08 15:00
PROVIDERS: ADMIT Internal Medicine; ATTEND Internal Medicine
PROC: 0DCP7ZZ Extirpation of Matter from Rectum, Via Natural or Artificial Opening (ICD-10-PCS; 2023-02-06)
PROC: 0JB70ZZ Excision of Back Subcutaneous Tissue and Fascia, Open Approach (ICD-10-PCS; principal; 2023-02-07)
PROC: 5A1D70Z Performance of Urinary Filtration, Intermittent, Less than 6 Hours Per Day (ICD-10-PCS; 2023-02-07)
PROC: 05HC33Z Insertion of Infusion Device into Left Basilic Vein, Percutaneous Approach (ICD-10-PCS; 2023-02-10)
DX: K56.41 Fecal impaction (principal); G92.8 Other toxic encephalopathy; L89.153 Pressure ulcer of sacral region, stage 3; N18.6 End stage renal disease; I50.23 Acute on chronic systolic (congestive) heart failure; J96.01 Acute respiratory failure with hypoxia; I21.A1 Myocardial infarction type 2; K56.600 Partial intestinal obstruction, unspecified as to cause; I13.2 Hypertensive heart and chronic kidney disease with heart failure and with stage 5 chronic kidney disease, or end stage renal disease; I48.20 Chronic atrial fibrillation, unspecified; I47.20 Ventricular tachycardia, unspecified; E87.20 Acidosis, unspecified; J90 Pleural effusion, not elsewhere classified; K42.9 Umbilical hernia without obstruction or gangrene; K44.9 Diaphragmatic hernia without obstruction or gangrene; I25.10 Atherosclerotic heart disease of native coronary artery without angina pectoris; Z20.822 Contact with and (suspected) exposure to COVID-19; K74.60 Unspecified cirrhosis of liver; Z99.2 Dependence on renal dialysis; Z95.1 Presence of aortocoronary bypass graft; I25.5 Ischemic cardiomyopathy; R33.8 Other retention of urine; N40.1 Benign prostatic hyperplasia with lower urinary tract symptoms; E78.5 Hyperlipidemia, unspecified; Z95.2 Presence of prosthetic heart valve; Z95.810 Presence of automatic (implantable) cardiac defibrillator; Z66 Do not resuscitate; Z86.19 Personal history of other infectious and parasitic diseases; J44.9 Chronic obstructive pulmonary disease, unspecified; Z79.51 Long term (current) use of inhaled steroids; Z79.01 Long term (current) use of anticoagulants; N32.0 Bladder-neck obstruction; Z87.891 Personal history of nicotine dependence; Z90.79 Acquired absence of other genital organ(s); I27.20 Pulmonary hypertension, unspecified; E87.5 Hyperkalemia; D72.829 Elevated white blood cell count, unspecified; K29.70 Gastritis, unspecified, without bleeding; K57.30 Diverticulosis of large intestine without perforation or abscess without bleeding; K40.20 Bilateral inguinal hernia, without obstruction or gangrene, not specified as recurrent
CPT/HCPCS: 36415; 71045-TC; 74018; 80048-TC; 80053-TC; 80076-TC; 82272-TC; 82962-TC; 83735-TC; 84100-TC; 84484-TC; 85025-TC; 85610-TC; 85730-TC; 86705; 86706; 86709; 87081-TC; 87340; 90935-TC; 93307-TC; 94799-TC; A4216; A4217; A4223; A6253; A6403; C9113; C9803; G0378; J0282; J0290; J0696; J1170; J2001; J2250; J2370; J2405; J3010; J3490; J7030; J7040; J7042; J7050; J7060; P9047